=== PATIENT | female | born 1995 | race Caucasian/White ===

== ENCOUNTER 2018-11-23 07:44 | Emergency (ER) | payer OTHER, SELFPAY ==
[2018-11-23 07:44] VITALS: BP 153/79; PULSE 136; RESP 20; TEMP 36.6; O2SAT 100; BMI 21.9
--- NOTE | 2018-11-23 07:54 | DI.US.S_ITS ---
PROCEDURE: US PELVIC COMPLETE INDICATIONS: POSITIVE HOME TEST, VAGINAL BLEEDING AND CRAMPING. Additional history is provided of a negative hospital test. TECHNIQUE: Real-time scanning was performed of the pelvic organs, with image documentation. Additional endovaginal scanning was necessary due to incomplete visualization of the adnexal and endometrial structures by transabdominal scanning. COMPARISON: None. FINDINGS: Transabdominal scanning: Limited scanning through the kidneys shows no hydronephrosis. No pathologic free abdominal or pelvic fluid. Endovaginal scanning: Uterus: Uterus is normal in size at 7.1 x 4.6 x 3 cm. 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 The endometrium measures 8 mm in combined thickness. Ovaries: The right ovary measures 4.3 x 3.6 x 1.8 cm. The left ovary measures 3.2 x 1.9 x 1.4 cm. The ovaries have a normal sonographic appearance. Normal appearing arterial flow is confirmed to each ovary. There is a right paraovarian cyst seen that measures 1 cm. IMPRESSION: No acute abnormality is seen. 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 There is a 1 cm right adnexal paraovarian cyst seen, which is not regarded to be pathologic. Dictated by: Agustin Hinojosa M.D. on 11/23/2018 at 8:23 Approved by: Agustin Hinojosa M.D. on 11/23/2018 at 8:26
--- NOTE | 2018-11-23 08:04 | ED.PREGNANCY ---
HPI - General Chief complaint: OB/Uterine Contractions Stated complaint: WITH CRAMPS AND BLEEDING Time Seen by Provider: 11/23/18 07:47 Source: patient Mode of arrival: ambulatory Limitations: no limitations History of Present Illness HPI Narrative: 23-year-old female comes to the emergency department with complaint of and cramps and vaginal bleeding. Patient states that her last menstrual period was sometime in September she believes. She states she has had 3 positive home test. Today she woke up feeling crampy and having some vaginal bleeding. She states like she would normally have her menses. She denies any fevers or chills has mild headache, she denies any chest pain or shortness of breath. No nausea no vomiting. No issues with bowel movements. No frequency urgency or dysuria. No vaginal discharge otherwise. Patient has had 1 prior and had a . She has not had any other pregnancies. She denies any other medical issues. She had ear tubes as a child. She is not on any medications, she is not currently on any prenatals. She is not established with a care provider at this time, She does have an appointment in a couple weeks with choices Date of Last Menstrual Period: 09/25/18 Hx Last Menstrual Period: Patient unsure of dates, thinks September. 8w3d by suspected dates. Patient : Yes Expected Date of Delivery: 07/02/19 Related Data Allergies Allergy/AdvReac Type Severity Reaction Status Date / Time amoxicillin Allergy Unknown Verified 11/23/18 07:51 Penicillins AdvReac Vomiting Verified 11/23/18 07:51 Review of Systems Review of Systems ROS Unobtainable: All systems reviewed & are unremarkable except as noted in HPI and below Constitutional Denies chills, Denies fever(s) and Reports headache(s) ENT Ears, Nose, Mouth, and Throat: Reports headache(s) Cardiovascular Denies chest pain and Denies dyspnea Respiratory Denies dyspnea Gastrointestinal Gastrointestinal: Denies abdominal pain, Denies change in bowel habits, Denies diarrhea, Denies nausea and Denies vomiting Genitourinary Reports as per HPI, Reports abnormal menses, Reports abnormal vaginal bleeding, Denies hematuria, Denies urinary frequency, Denies dysuria, Denies flank pain, Denies urinary incontinence, Denies urinary urgency, Denies vaginal discharge and Denies vaginal odor Neurologic Reports headache(s) PMFSH - Past Medical History Medical history: Reports no medical history Surgical history: Reports other (ear tubes) 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 8w3d by suspected dates. Patient : Yes Expected Date of Delivery: 07/02/19 Exam Narrative Exam Narrative: GENERAL: Alert and oriented x three, well-nourished, well-appearing female in mild distress. Patient is quite tearful initially on exam. HEENT: Head normocephalic, atraumatic, EOMI, pupils reactive, face symmetric, moist mucous membranes NECK: Supple, full range of motion CARDIOVASCULAR: Regular rate and rhythm without murmurs, rubs or gallops. RESPIRATORY: Breath sounds equal bilaterally, no wheezes rales or rhonchi. ABDOMEN: Soft, nontender. Normoactive bowel sounds all 4 quadrants. No guarding or rebound, rigidity, no mass : No CVA tenderness. Female: no enlarged or tender uterus noted on exam. EXTREMITIES: Normal range of motion, no edema. Neurovascularly intact. Normal gait. NEUROLOGICAL: Cranial nerves II through XII grossly intact. Moving all extremities SKIN: Warm, dry, no petechiae, no rashes or lesions. Initial Vital Signs Initial Vital Signs: Vital Signs Temperature 97.8 F 11/23/18 07:44 Pulse Rate 136 H 11/23/18 07:44 Respiratory Rate 20 11/23/18 07:44 Blood Pressure 153/79 H 11/23/18 07:44 Pulse Oximetry 100 11/23/18 07:44 Course Orders Ordered: ED Orders 11/23/18 07:54 US pelvic complete Stat 11/23/18 08:02 Test Urine Stat Urinalysis and Microscopic Stat 11/23/18 08:27 ABO RH Type Stat Complete Blood Count AUTO DIFF Stat HCG Quantitative Stat Vital Signs - 8 hr 11/23/18 07:44 11/23/18 08:56 Temperature 97.8 F Pulse Rate 136 H 82 Respiratory Rate 20 12 Blood Pressure 153/79 H Blood Pressure [Left Arm] 119/76 Pulse Oximetry 100 MDM - OB/Uterine Contractions Lab Data Attestation: I reviewed the patient's lab results. Result diagrams: 11/23/18 08:27 Lab Results 11/23/18 11/23/18 11/23/18 Range/Units 08:02 08:02 08:27 WBC 7.1 (4.5-11.0) X10^3/uL RBC 3.66 L (4.0-5.2) X10^6/uL Hgb 11.7 L (12.0-16.0) g/dL Hct 33.7 L (36-46) % MCV 92.0 (80-100) fL MCH 31.9 (26-34) PG MCHC 34.7 (30-36) % RDW 12.1 (11.6-14.8) % Plt Count 249 (150-400) X10^3/uL Neut % (Auto) 71.4 (50-75) % Lymph % (Auto) 21.8 L (25-40) % [place] % (Auto) 5.8 (3-14) % Eos % (Auto) 0.7 L (2-4) % Baso % (Auto) 0.3 (0-2) % Neut # (Auto) 5100 (1636-4467) /uL Lymph # (Auto) 1500 (9821-5986) /uL [place] # (Auto) 400 (0-900) /uL Eos # (Auto) 0 (0-450) /uL Baso # (Auto) 0 (0-100) /uL HCG, Quant mIU/mL Urine Color Yellow Urine Appearance Clear Urine pH 6.5 (4.5-8.0) Ur Specific [place] 1.020 (1.000-1.035) Urine Protein Negative (Negative) Urine Glucose (UA) Negative (Negative) g/dL Urine Ketones Negative (NEGATIVE) Urine Occult Blood 3+ H (Negative) Urine Nitrate Negative (Negative) Urine Bilirubin Negative (NEGATIVE) Urine Urobilinogen 0.2 (0.2) E.U./dL Ur Leukocyte Esterase Trace H (NEGATIVE) Urine RBC 5-10/hpf H (0-5/HPF) Urine WBC 1-5/hpf (0-5/HPF) Ur Squamous Epith Cells 10-30 /hpf H (0-5/HPF) Urine Bacteria Moderate (10-30) H (None) Ur Culture Indicated? Cult not indicated Urine Test Negative (Negative) Blood Type 11/23/18 11/23/18 Range/Units 08:27 08:27 WBC (4.5-11.0) X10^3/uL RBC (4.0-5.2) X10^6/uL Hgb (12.0-16.0) g/dL Hct (36-46) % MCV (80-100) fL MCH (26-34) PG MCHC (30-36) % RDW (11.6-14.8) % Plt Count (150-400) X10^3/uL Neut % (Auto) (50-75) % Lymph % (Auto) (25-40) % [place] % (Auto) (3-14) % Eos % (Auto) (2-4) % Baso % (Auto) (0-2) % Neut # (Auto) (0272-0611) /uL Lymph # (Auto) (6842-1826) /uL [place] # (Auto) (0-900) /uL Eos # (Auto) (0-450) /uL Baso # (Auto) (0-100) /uL HCG, Quant 6.64 mIU/mL Urine Color Urine Appearance Urine pH (4.5-8.0) Ur Specific [place] (1.000-1.035) Urine Protein (Negative) Urine Glucose (UA) (Negative) g/dL Urine Ketones (NEGATIVE) Urine Occult Blood (Negative) Urine Nitrate (Negative) Urine Bilirubin (NEGATIVE) Urine Urobilinogen (0.2) E.U./dL Ur Leukocyte Esterase (NEGATIVE) Urine RBC (0-5/HPF) Urine WBC (0-5/HPF) Ur Squamous Epith Cells (0-5/HPF) Urine Bacteria (None) Ur Culture Indicated? Urine Test (Negative) Blood Type O Positive Imaging Data ob US: Radiologist's impression: [address] [address] Ultrasound Report Signed Patient: May Singletary MMR#: [id number] : 1995Acct:[id number] Age/Sex: te of Service: 11/23/18 Loc: ED Accession Number: [id number] Procedure: US pelvic complete Ordering Provider: Georgia Han D.O. PROCEDURE: US PELVIC COMPLETE INDICATIONS: POSITIVE HOME TEST, VAGINAL BLEEDING AND CRAMPING. Additional history is provided of a negative hospital test. TECHNIQUE: Real-time scanning was performed of the pelvic organs, with image documentation. Additional endovaginal scanning was necessary due to incomplete visualization of the adnexal and endometrial structures by transabdominal scanning. COMPARISON: None. FINDINGS: Transabdominal scanning: Limited scanning through the kidneys shows no hydronephrosis. No pathologic free abdominal or pelvic fluid. Endovaginal scanning: Uterus: Uterus is normal in size at 7.1 x 4.6 x 3 cm. 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 The endometrium measures 8 mm in combined thickness. Ovaries: The right ovary measures 4.3 x 3.6 x 1.8 cm. The left ovary measures 3.2 x 1.9 x 1.4 cm. The ovaries have a normal sonographic appearance. Normal appearing arterial flow is confirmed to each ovary. There is a right paraovarian cyst seen that measures 1 cm. IMPRESSION: No acute abnormality is seen. 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 There is a 1 cm right adnexal paraovarian cyst seen, which is not regarded to be pathologic. Dictated by: Agustin Hinojosa M.D. on 11/23/2018 at 8:23 Approved by: Agustin Hinojosa M.D. on 11/23/2018 at 8:26 MDM Narrative Medical decision making narrative: Patient's lab work shows a HCG of 6.6 and negative urine test. Ultrasound does not show any acute findings other than a paraovarian cyst which is not abnormal. Discussed with patient I suspect she had a complete miscarriage. Plan for follow-up outpatient with PCP. Discharge Plan Departure Patient Disposition: Home Clinical Impression: Miscarriage Discharge Date/Time: 11/23/18 09:55 Interventions: ED Discharge Assessment Last Done: 11/23/18 09:53 Instructions: DI for Miscarriage Activity Restrictions/Additional Instructions: Follow-up with your provider in the next week for recheck. You may take ibuprofen up to 800 mg every 8 hours and/or Tylenol up to a 1000 mg every 8 hours as needed for pain. You should expect vaginal bleeding for up to 7-14 days. Return to the emergency department for fevers greater than 100.4 F, rapidly increasing abdominal or pelvic pain, persistent vomiting, lightheadedness, passing out, shortness of breath, rapidly worsening vaginal bleeding with large clots that is continuing to increase or other new or concerning symptoms. Referrals: Quincy Graham MD [Primary Care Provider] -
--- NOTE | 2018-11-23 08:09 | ED_ITS ---
HPI - General Chief complaint: OB/Uterine Contractions Stated complaint: WITH CRAMPS AND BLEEDING Time Seen by Provider: 11/23/18 07:47 Source: patient Mode of arrival: ambulatory Limitations: no limitations History of Present Illness HPI Narrative: 23-year-old female comes to the emergency department with complaint of and cramps and vaginal bleeding. Patient states that her last menstrual period was sometime in September she believes. She states she has had 3 positive home test. Today she woke up feeling crampy and having some vaginal bleeding. She states like she would normally have her menses. She denies any fevers or chills has mild headache, she denies any chest pain or shortness of breath. No nausea no vomiting. No issues with bowel movements. No frequency urgency or dysuria. No vaginal discharge otherwise. Patient has had 1 prior and had a . She has not had any other pregnancies. She denies any other medical issues. She had ear tubes as a child. She is not on any medications, she is not currently on any prenatals. She is not established with a care provider at this time, She does have an appointment in a couple weeks with choices Date of Last Menstrual Period: 09/25/18 Hx Last Menstrual Period: Patient unsure of dates, thinks September. 8w3d by suspec ike dates. Patient : Yes Expected Date of Delivery: 07/02/19 Related Data Allergies Allergy/AdvReac Type Severity Reaction Status Date / Time amoxicillin Allergy Unknown Verified 11/23/18 07:51 Penicillins AdvReac Vomiting Verified 11/23/18 07:51 Review of Systems Review of Systems ROS Unobtainable: All systems reviewed & are unremarkable except as noted in HPI and below Constitutional Denies chills, Denies fever(s) and Reports headache(s) ENT Ears, Nose, Mouth, and Throat: Reports headache(s) Cardiovascular Denies chest pain and Denies dyspnea Respiratory Denies dyspnea Gastrointestinal Gastrointestinal: Denies abdominal pain, Denies change in bowel habits, Denies diarrhea, Denies nausea and Denies vomiting Genitourinary Reports as per HPI, Reports abnormal menses, Reports abnormal vaginal bleeding, Denies hematuria, Denies urinary frequency, Denies dysuria, Denies flank pain, Denies urinary incontinence, Denies urinary urgency, Denies vaginal discharge and Denies vaginal odor Neurologic Reports headache(s) PMFSH - Past Medical History Medical history: Reports no medical history Surgical history: Reports other (ear tubes) 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 8w3d by suspected dates. Patient : Yes Expected Date of Delivery: 07/02/19 Exam Narrative Exam Narrative: GENERAL: Alert and oriented x three, well-nourished, well- appearing female in mild distress. Patient is quite tearful initially on exam. HEENT: Head normocephalic, atraumatic, EOMI, pupils reactive, face symmetric, moist mucous membranes NECK: Supple, full range of motion CARDIOVASCULAR: Regular rate and rhythm without murmurs, rubs or gallops. RESPIRATORY: Breath sounds equal bilaterally, no wheezes rales or rhonchi. ABDOMEN: Soft, nontender. Normoactive bowel sounds all 4 quadrants. No guarding or rebound, rigidity, no mass : No CVA tenderness. Female: no enlarged or tender uterus noted on exam. EXTREMITIES: Normal range of motion, no edema. Neurovascularly intact. Normal gait. NEUROLOGICAL: Cranial nerves II through XII grossly intact. Moving all extremities SKIN: Warm, dry, no petechiae, no rashes or lesions. Initial Vital Signs Initial Vital Signs: Vital Signs Temperature 97.8 F 11/23/18 07:44 Pulse Rate 136 H 11/23/18 07:44 Respiratory Rate 20 11/23/18 07:44 Blood Pressure 153/79 H 11/23/18 07:44 Pulse Oximetry 100 11/23/18 07:44 Course Orders Ordered: ED Orders 11/23/18 07:54 US pelvic complete Stat 11/23/18 08:02 Test Urine Stat Urinalysis and Microscopic Stat 11/23/18 08:27 ABO RH Type Stat Complete Blood Count AUTO DIFF Stat HCG Quantitative Stat Vital Signs - 8 hr 11/23/18 07:44 11/23/18 08:56 Temperature 97.8 F Pulse Rate 136 H 82 Respiratory Rate 20 12 Blood Pressure 153/79 H Blood Pressure [Left Arm] 119/76 Pulse Oximetry 100 MDM - OB/Uterine Contractions Lab Data Attestation: I reviewed the patient's lab results. Result diagrams: 11/23/18 08:27 Lab Results 11/23/18 11/23/1811/23/19 Range/Units 08:02 08:02 08:27 WBC 7.1 (4.5-11.0) X10^3/uL RBC 3.66 L (4.0-5.2) X10^6/uL Hgb 11.7 L (12.0-16.0) g/dL Hct 33.7 L (36-46) % MCV 92.0 (80-100) fL MCH 31.9 (26-34) PG MCHC 34.7 (30-36) % RDW 12.1 (11.6-14.8) % Plt Count 249 (150-400) X10^3/uL Neut % (Auto) 71.4 (50-75) % Lymph % (Auto) 21.8 L (25-40) % [place] % (Auto) 5.8 (3-14) % Eos % (Auto) 0.7 L (2-4) % Baso % (Auto) 0.3 (0-2) % Neut # (Auto) 5100 (4712-1131) /uL Lymph # (Auto) 1500 (4086-4179) /uL [place] # (Auto) 400 (0-900) /uL Eos # (Auto) 0 (0-450) /uL Baso # (Auto) 0 (0-100) /uL HCG, Quant mIU/mL Urine Color Yellow Urine Appearance Clear Urine pH 6.5 (4.5-8.0) Ur Specific [place] 1.020 (1.000-1.035) Urine Protein Negative (Negative) Urine Glucose (UA) Negative (Negative) g/dL Urine Ketones Negative (NEGATIVE) Urine Occult Blood 3+ H (Negative) Urine Nitrate Negative (Negative) Urine Bilirubin Negative (NEGATIVE) Urine Urobilinogen 0.2 (0.2) E.U./dL Ur Leukocyte Esterase Trace H (NEGATIVE) Urine RBC 5-10/hpf H (0-5/HPF) Urine WBC 1-5/hpf (0-5/HPF) Ur Squamous Epith Cells 10-30 /hpf H (0-5/HPF) Urine Bacteria Moderate (10-30) H (None) Ur Culture Indicated? Cult not indicated Urine Test Negative (Negative) Blood Type 11/23/18 11/23/18 Range/Units 08:27 08:27 WBC (4.5-11.0) X10^3/uL RBC (4.0-5.2) X10^6/uL Hgb (12.0-16.0) g/dL Hct (36-46) % MCV (80-100) fL MCH (26-34) PG MCHC (30-36) % RDW (11.6-14.8) % Plt Count (150-400) X10^3/uL Neut % (Auto) (50-75) % Lymph % (Auto) (25-40) % [place] % (Auto) (3-14) % Eos % (Auto) (2-4) % Baso % (Auto) (0-2) % Neut # (Auto) (2823-5659) /uL Lymph # (Auto) (3190-5353) /uL [place] # (Auto) (0-900) /uL Eos # (Auto) (0-450) /uL Baso # (Auto) (0-100) /uL HCG, Quant 6.64 mIU/mL Urine Color Urine Appearance Urine pH (4.5-8.0) Ur Specific [place] (1.000-1.035) Urine Protein (Negative) Urine Glucose (UA) (Negative) g/dL Urine Ketones (NEGATIVE) Urine Occult Blood (Negative) Urine Nitrate (Negative) Urine Bilirubin (NEGATIVE) Urine Urobilinogen (0.2) E.U./dL Ur Leukocyte Esterase (NEGATIVE) Urine RBC (0-5/HPF) Urine WBC (0-5/HPF) Ur Squamous Epith Cells (0-5/HPF) Urine Bacteria (None) Ur Culture Indicated? Urine Test (Negative) Blood Type O Positive Imaging Data ob US: Radiologist's impression: [address] [address] Ultrasound Report Signed Patient: Mya Singletary MMR#: [id number] : 1995Acct:[id number] Age/Sex: FDate of Service: 11/23/18 Loc: ED Accession Number: [id number] Procedure: US pelvic complete Ordering Provider: Georgia Han D.O. PROCEDURE: US PELVIC COMPLETE INDICATIONS: POSITIVE HOME TEST, VAGINAL BLEEDING AND CRAMPING. Additional history is provided of a negative hospital test. TECHNIQUE: Real-time scanning was performed of the pelvic organs, with image documentation. Additional endovaginal scanning was necessary due to incomplete visualization of the adnexal and endometrial structures by transabdominal scanning. COMPARISON: None. FINDINGS: Transabdominal scanning: Limited scanning through the kidneys shows no hydronephrosis. No pathologic free abdominal or pelvic fluid. Endovaginal scanning: Uterus: Uterus is normal in size at 7.1 x 4.6 x 3 cm. 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 The endometrium measures 8 mm in combined thickness. Ovaries: The right ovary measures 4.3 x 3.6 x 1.8 cm. The left ovary measures 3.2 x 1.9 x 1.4 cm. The ovaries have a normal sonographic appearance. Normal appearing arterial flow is confirmed to each ovary. There is a right paraovarian cyst seen that measures 1 cm. IMPRESSION: No acute abnormality is seen. 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 There is a 1 cm right adnexal paraovarian cyst seen, which is not regarded to be pathologic. Dictated by: Agustin Hinojosa M.D. on 11/23/2018 at 8:23 Approved by: Agustin Hinojosa M.D. on 11/23/2018 at 8:26 MDM Narrative Medical decision making narrative: Patient's lab work shows a HCG of 6.6 and negative urine test. Ultrasound does not show any acute findings other than a paraovarian cyst which is not abnormal. Discussed with patient I suspect she had a complete miscarriage. Plan for follow-up outpatient with PCP. Discharge Plan Departure Patient Disposition: Home Clinical Impression: Miscarriage Discharge Date/Time: 11/23/18 09:55 Interventions: ED Discharge Assessment Last Done: 11/23/18 09:53 Instructions: DI for Miscarriage Activity Restrictions/Additional Instructions: Follow-up with your provider in the next week for recheck. You may take ibuprofen up to 800 mg every 8 hours and/or Tylenol up to a 1000 mg every 8 hours as needed for pain. You should expect vaginal bleeding for up to 7-14 days. Return to the emergency department for fevers greater than 100.4 F, rapidly increasing abdominal or pelvic pain, persistent vomiting, lightheadedness, passing out, shortness of breath, rapidly worsening vaginal bleeding with large clots that is continuing to increase or other new or concerning symptoms. Referrals: Quincy Graham MD [Primary Care Provider] -
[2018-11-23 08:21] LABS: Appearance Urine UA CLEAR; Bilirubin Urine UA NEGATIVE (NEGATIVE); Color Urine UA YELLOW; Glucose Urine UA NEGATIVE (Negative); Ketones Urine UA NEGATIVE (NEGATIVE); Leukocyte Esterase Urine UA TRACE (NEGATIVE); Nitrite Urine UA NEGATIVE (Negative); Occult Blood Urine UA 3+ (Negative); Protein Urine UA NEGATIVE (Negative); Urobilinogen Urine UA 0.2 E.U./dL (0.2); pH Urine UA 6.5 (4.5-8.0)
[2018-11-23 08:22] LABS: Pregnancy Test Urine Negative (Negative)
[2018-11-23 08:28] LABS: Bacteria Urine Moderate (10-30); Culture Indicated Urine Cult Not Indicated; RBC Urine 5-10/HPF (0-5/HPF); Squamous Epithelial Cell Urine 10-30 /HPF (0-5/HPF); WBC Urine 1-5/HPF (0-5/HPF)
[2018-11-23 08:36] LABS: Add Manual Diff / Slide Review NO; Basophils Absolute Auto 0 /uL (0-100); Basophils Percent Auto 0.3 % (0-2); Eosinophils Absolute Auto 0 /uL (0-450); Eosinophils Percent Auto 0.7 % (2-4); Hematocrit 33.7 % (36-46); Hemoglobin 11.7 g/dL (12.0-16.0); Lymphocytes Absolute Auto 1500 /uL (1100-4500); Lymphocytes Percent Auto 21.8 % (25-40); Mean Corpuscular HGB Conc 34.7 % (30-36); Mean Corpuscular Hemoglobin 31.9 PG (26-34); Monocytes Absolute Auto 400 /uL (0-900); Monocytes Percent Auto 5.8 % (3-14); Neutrophils Absolute Auto 5100 /uL (1500-7000); Neutrophils Percent Auto 71.4 % (50-75); Platelet Count 249 X10^3/uL (150-400); Red Blood Cell Count 3.66 X10^6/uL (4.0-5.2); Red Cell Distribution Width 12.1 % (11.6-14.8); White Blood Cell Count 7.1 X10^3/uL (4.5-11.0)
[2018-11-23 08:56] VITALS: BP 119/76; PULSE 82; RESP 12
[2018-11-23 09:03] LABS: HCG Quantitative /Beta subunit 6.64 mIU/mL
== END 2018-11-23 09:55 | disposition home or self-care (01) ==
PROVIDERS: Emergency Provider Emergency Medicine; PCP Family Medicine
DX: O03.9 Complete or unspecified spontaneous abortion without complication (principal)
CPT/HCPCS: 36415; 76830; 76856; 81001; 81025; 84702; 85025; 86900; 86901; 99283; 99284

== ENCOUNTER → 2018-12-06 11:58 | Outpatient (CLI) | payer OTHER, SELFPAY ==
--- NOTE | 2018-12-06 12:02 | DI.RAD.S_ITS ---
PROCEDURE: XR ANKLE RT MIN 3V INDICATIONS: Right ankle pain, lateral malleolus TECHNIQUE: 3 views of the ankle were acquired. COMPARISON: [facility], , ANKLE 3 VIEWS LEFT, 08/31/2011, 22:13. FINDINGS: Bones: No fractures or dislocations. Ankle mortise is normally aligned. No suspicious bony lesions. Soft tissues: No tibiotalar joint effusion. Achilles tendon appears normal. IMPRESSION: Intact right ankle. Dictated by: Linsey Agustin M.D. on 12/06/2018 at 12:41 Approved by: Linsey Agustin M.D. on 12/06/2018 at 12:41
== END ==
PROVIDERS: PCP Family Medicine; Visit Provider Physician Assistant
DX: M25.571 Pain in right ankle and joints of right foot (principal)
CPT/HCPCS: 73610

== ENCOUNTER → 2020-04-15 10:16 | Outpatient (CLI) | payer OTHER, SELFPAY ==
[2020-04-15 10:38] LABS: COVID19 -Nasal RAPID Negative (Negative)
== END ==
PROVIDERS: PCP Family Medicine; Visit Provider Physician Assistant
DX: Z11.59 Encounter for screening for other viral diseases (principal)
CPT/HCPCS: 87635

== ENCOUNTER → 2020-05-21 14:29 | Outpatient (CLI) | payer OTHER, SELFPAY ==
[2020-05-21 14:53] LABS: COVID19 -Nasal RAPID Negative (Negative)
== END ==
PROVIDERS: PCP Family Medicine; Visit Provider Physician Assistant
DX: Z20.822 Contact with and (suspected) exposure to COVID-19 (principal); R50.9 Fever, unspecified; R51.9 Headache, unspecified
CPT/HCPCS: 87635

== ENCOUNTER 2020-08-24 14:23 | Emergency (ER) | payer OTHER, SELFPAY ==
[2020-08-24 14:40] VITALS: BP 105/55; PULSE 74; RESP 20; TEMP 36.9; O2SAT 98
--- NOTE | 2020-08-24 15:43 | ED.FEMALEGU ---
HPI - Female Genitourinary General Chief complaint: Urogenital-Female Stated complaint: cyst by vagina Time Seen by Provider: 08/24/20 15:42 Source: patient Mode of arrival: Ambulatory History of Present Illness HPI Narrative: 25-year-old otherwise healthy woman with and irritation in the vaginal area for a couple of weeks. She had done her own research and concluded it was a Bartholin's duct cyst and as it was not hurting or causing problems she has seemed would heal by itself. This morning she awoke with severe swelling and pain. She describes no fevers, no significant vaginal discharge. No recent sexual partners no chance of . Related Data Home Medications Medication Instructions Recorded Confirmed No Known Home Medications 12/06/18 05/21/20 Allergies Allergy/AdvReac Type Severity Reaction Status Date / Time amoxicillin Allergy Unknown Verified 05/21/20 14:20 Penicillins AdvReac Vomiting Verified 05/21/20 14:20 Review of Systems Review of Systems Narrative: Pertinent positive and negative findings as per HPI Remainder of review of systems is otherwise unremarkable for Constitutional: Fevers, chills, weakness ENT: No sore throat, neck pain, ear pain CV: Chest pain, palpitations, Respiratory: Cough, wheeze, dyspnea GI: Nausea, vomiting, diarrhea, : Dysuria, hematuria, Patient History Medical History No active medical problems Substance Use Type: marijuana Exam Narrative Exam Narrative: General: Healthy appearing, in no acute distress. Able to give a complete and coherent history. Well-nourished well-developed HEENT: Moist mucous membranes, normal sclera with reactive pupils, Respiratory: Lungs are clear to auscultation, no wheezing no rales no rhonchi. Full and symmetrical air movement Cardiac: Regular rate and rhythm no murmurs no bruits Abdomen: Soft, nontender, good bowel tones, no flank pain Skin: Warm and dry, no rashes Neurologic: Grossly neurologically intact with no obvious asymmetries or abnormalities Extremities: No trauma, well perfused Psych: Cooperative, appropriate insight and affect Genitals: Large cyst in the left labia majora consistent with a Bartholin duct cyst. No abnormalities over the inner portion of the labia. No rashes. Initial Vital Signs Initial Vital Signs: Vital Signs Temperature 98.4 F 08/24/20 14:40 Pulse Rate 74 04/13/21 14:40 Respiratory Rate 20 08/24/20 14:40 Blood Pressure 105/55 L 08/24/20 14:40 Pulse Oximetry 98 08/24/20 14:40 Procedures [facility] [place] Procedure Name of Procedure: Bartholin duct cyst, word catheter placement Side (if applicable): left Location: labia Technique/Description of procedure performed: sterile technique anesthetized with 2% lido 8cc #11 blade used to open the cyst 35cc of old blood and viscous material freely returned. Does not look purulent word catheter placed into cyst without difficulty. 4cc saline into the balloon minimal bleeding, est 5cc no complications Patient tolerated procedure: Well Course Vital Signs Vital signs: Vital Signs - 8 hr 08/24/20 14:40 Temperature 98.4 F Pulse Rate 74 Respiratory Rate 20 Blood Pressure 105/55 L Pulse Oximetry 98 MDM - Female Genitourinary Medical Records Attestation: I reviewed the patient's medical records. [facility] Narrative Medical decision making narrative: 24-year-old woman with a : Duct cyst at the has not been bothering her until the last 24 hours. His gotten significantly larger and more painful. It is not red or hot and she has not had any infectious symptoms. Word catheter is placed without difficulty into the cystic space with 4 cc of saline into the catheter and catheter secure Patient will follow-up with OBGYN are, asked her to walk over to the department and schedule the appointment today. Discharge Plan Departure Patient Disposition: Home Clinical Impression: Cyst of Bartholin's gland duct Instructions: DI for Bartholin Gland Cyst Activity Restrictions/Additional Instructions: Thank you for coming in today You did have a Bartholin gland cyst. It was easy to drain in you had around 40 cc of material that did not appear to be infected. A Word Catheter was placed without any difficulty. You can talk the end of the catheter toward your vagina so that is easier to walk and be comfortable. You will likely have a bit of the discharge that we noticed with the initial incision and a bit of blood as well. Panty liners will likely be helpful. Please walk over to [facility] an asked to schedule appointment with Dr. Capri Chatterjee, the OBGYN on-call. The appointment needs to be an emergency room follow-up for word catheter placement If you have fevers, more drainage or if begins to smell, increasing pain or redness you do need to return to the emergency department Prescriptions: No Action No Known Home Medications RF: 0 Referrals: Quincy Graham MD [Primary Care Provider] - Capri Chatterjee MD [Physician] -
== END 2020-08-24 16:13 | disposition home or self-care (01) ==
PROVIDERS: Emergency Provider Emergency Medicine; PCP Family Medicine
DX: N75.0 Cyst of Bartholin's gland (principal)
CPT/HCPCS: 56420; 99281; 99283

== ENCOUNTER → 2020-09-02 16:42 | Outpatient (CLI) | payer OTHER, SELFPAY ==
[2020-09-02] MEDS: COVID-19 VACC #1, MRNA(MOD) 100 MCG/0.5 ML VIAL IM (17:03)
== END ==
PROVIDERS: PCP Family Medicine; Visit Provider Internal Medicine
DX: Z23 Encounter for immunization (principal)
CPT/HCPCS: 0011A; 91301

== ENCOUNTER → 2020-09-20 14:41 | Outpatient (CLI) | payer OTHER, SELFPAY | PROVIDERS: Visit Provider Obstetrics & Gynecology | DX: N75.0 Cyst of Bartholin's gland (principal) | CPT/HCPCS: 87070; 87205 ==

== ENCOUNTER → 2020-09-30 10:48 | Outpatient (CLI) | payer OTHER, SELFPAY ==
[2020-09-30] MEDS: COVID-19 VACC #2, MRNA(MOD) 100 MCG/0.5 ML VIAL IM (10:55)
== END ==
PROVIDERS: Visit Provider Internal Medicine
DX: Z23 Encounter for immunization (principal)
CPT/HCPCS: 0012A; 91301

== ENCOUNTER 2020-10-09 17:21 | Emergency (ER) | payer OTHER, SELFPAY ==
[2020-10-09 18:08] VITALS: BP 120/69; PULSE 93; RESP 18; TEMP 36.8; O2SAT 99; BMI 24.7
[2020-10-09] MEDS: IBUPROFEN 400 MG TABLET 800 MG PO (20:20)
--- NOTE | 2020-10-09 20:39 | ED_ITS ---
HPI - Skin/Abscess/Foreign Bdy General Chief complaint: Skin/Abscess/Foreign Body Stated complaint: Cyst reoccurence Time Seen by Provider: 10/09/20 20:27 Source: patient Mode of arrival: Ambulatory Limitations: no limitations History of Present Illness HPI narrative: Patient is a 25-year-old female who presents with history of left Bartholin's cyst. She states it has recurred it came on suddenly last night she is in severe pain and tearful. It has been drained twice the 1st was in the emergency department on August 24, she then follow up with her wind tunnel mechanic who rehab drained it on September 20 and started her on antibiotics. She denies fever or chills. She has significant pain. MD complaint: abscess/boil Onset (ago): day(s) (1) Severity: severe Related Data Previous Rx's Medication Instructions Recorded sulfamethoxazole 800 1 tab PO BID #14 tab 09/20/20 mg-trimethoprim 160 mg tablet sulfamethoxazole-trimethoprim 1 tab PO BID 10 Days #20 tab 10/09/20 [Bactrim DS] Allergies Allergy/AdvReac Type Severity Reaction Status Date / Time amoxicillin Allergy Unknown Verified 10/09/20 18:08 Penicillins AdvReac Vomiting Verified 10/09/20 18:08 Review of Systems Review of Systems Narrative: GENERAL: Denies chills,fever HEENT: Denies throat pain RESPIRATORY: Denies dyspnea, cough, wheezing CARDIOVASCULAR: Denies chest pain, palpitations GASTROINTESTINAL: Denies nausea, vomiting MUSCULOSKELETAL: Denies extremity pain, injury SKIN: See HPI NEUROLOGIC: Denies weakness, dizziness, headache, numbness 8 point review of systems is negative except for those stated above and HPI Patient History Medical History (Updated 10/09/20 @ 21:52 by Jenny Antoine DO) Bartholin's gland abscess No active medical problems Social History Smoking Status: Current every day smoker Smoking Status: Current every day smoker tobacco type: vaping alcohol intake frequency: a few times a month Substance Use Type: does not use Exam Initial Vital Signs Initial Vital Signs: Vital Signs Temperature 98.2 F 10/09/20 18:08 Pulse Rate 93 H 10/09/20 18:08 Respiratory Rate 18 10/09/20 18:08 Blood Pressure 120/69 10/09/20 18:08 Pulse Oximetry 99 10/09/20 18:08 GENERAL: Tearful young female CARDIOVASCULAR: peripheral pulses in tact, cap refill <2 sec RESPIRATORY: No respiratory distress, speaks in full sentences without difficulty 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 Neurovascularly intact NEUROLOGICAL: Cranial nerves II through XII grossly intact. Normal gait and speech. SKIN: Warm, dry, no petechiae, no rashes or lesions. Procedures Abscess I/D I&D #1: Site: bartholin's gland Side (if applicable): left Local Anesthetic: lidocaine 1% Amount of anesthesia used (mL): 4 Technique: incised with #11 blade Irrigation: No Packing used?: none and Word catheter (patient refused) Complications: pain and bleeding Course Orders Ordered: ED Orders 10/09/20 21:45 Wound Culture and Gram Stain Stat Discontinued Medications Ibuprofen (Ibuprofen 400 Mg Tablet) 800 mg PO NOW ONE Stop: 10/09/20 20:16 Last Admin: 10/09/20 20:20 Dose: 800 mg Documented by: TIANNA Lidocaine HCl (Lidocaine 1% (Pf)) 6 ml SUBCUT NOW ONE Stop: 10/09/20 21:06 Last Admin: 10/09/20 21:35 Dose: 6 ml Documented by: TIANNA Vital Signs Vital signs: Vital Signs - 8 hr 10/09/20 20:59 10/09/20 21:00 10/09/20 21:30 Pulse Rate 83 80 68 Blood Pressure 119/70 Pulse Oximetry 97 98 100 10/09/20 21:37 10/09/20 21:40 Pulse Rate 59 L Blood Pressure 119/66 Pulse Oximetry 100 MDM - Skin/Abscess/Foreign Bdy MDM Narrative Medical decision making narrative: Patient is requesting not to have word catheter placed she said it caused issues last time. 2nd recurrence at this month previously placed on Bactrim will start her on Bactrim again and have her follow up with wind tunnel mechanic. Culture is pending. There was foul smell all loss of drainage pain instantly improved. Discharge Plan Departure Patient Disposition: Home Clinical Impression: Bartholin's gland abscess Instructions: DI for Bartholin Gland Cyst Activity Restrictions/Additional Instructions: *You have been diagnosed with Bartholin cyst *What to do: Please follow-up with wind tunnel mechanic may require further intervention such as surgery. *Continue to take medications as directed Bactrim 1 tablet twice a day for 10 days--> [facility] in [place] *Follow up with your wind tunnel mechanic in 2-3 days *Return to ER if you should have fever chills increasing swelling, pain or any new, worsening or concerning symptoms Prescriptions: New sulfamethoxazole-trimethoprim [Bactrim DS] 800-160 mg tablet 1 tab PO BID 10 Days Qty: 20 RF: 0 No Action sulfamethoxazole-trimethoprim [Bactrim DS] 800-160 mg tablet 1 tab PO BID Qty: 14 RF: 0 Referrals: Tess Zacarias MD [Primary Care Provider] -
[2020-10-09 20:59] VITALS: BP 119/70; PULSE 83; O2SAT 97
[2020-10-09 21:00] VITALS: PULSE 80; O2SAT 98
[2020-10-09 21:30] VITALS: PULSE 68; O2SAT 100
[2020-10-09] MEDS: LIDOCAINE 1% (PF) 6 ML SUBCUT (21:35)
[2020-10-09 21:37] VITALS: PULSE 59; O2SAT 100
[2020-10-09 21:40] VITALS: BP 119/66
== END 2020-10-09 22:00 | disposition home or self-care (01) ==
PROVIDERS: Emergency Provider Emergency Medicine; PCP Obstetrics & Gynecology
DX: N75.0 Cyst of Bartholin's gland (principal)
CPT/HCPCS: 10060; 87070; 87075; 87077; 87205; 99283

== ENCOUNTER → 2020-11-01 15:20 | Outpatient (CLI) | payer OTHER, SELFPAY ==
[2020-11-01 16:04] LABS: COVID19 -Nasal RAPID Negative (Negative)
== END ==
PROVIDERS: Visit Provider Obstetrics & Gynecology
DX: Z01.812 Encounter for preprocedural laboratory examination (principal); Z20.822 Contact with and (suspected) exposure to COVID-19
CPT/HCPCS: 87635

== ENCOUNTER 2020-11-01 15:40 | Day surgery (SDC) | payer OTHER, SELFPAY ==
[2020-11-01 13:29] VITALS: BMI 25.4
--- NOTE | 2020-11-01 15:47 | PM.HP.1 ---
History of Present Illness History of Present Illness Date Patient Seen: 11/01/20 Time Patient Seen: 15:47 Chief complaint: SDC Narrative: Patient is a 25-year-old 0 with a left Bartholin's gland abscess Patient reports feeling some pain on Sunday afternoon. This got worse yesterday and excruciating this morning. She is not able to sit. She works from home and has been having trouble doing her work because she can not get comfortable. Patient History Medical History Bartholin's gland abscess No active medical problems Family & Social History Tobacco & Substance use: Smoking Status Current every day smoker alcohol intake current alcohol intake frequency a few times a month Substance Use Type does not use Meds Home Medications and Allergies Allergies Allergy/AdvReac Type Severity Reaction Status Date / Time amoxicillin Allergy Unknown Verified 10/28/20 08:33 Penicillins AdvReac Vomiting Verified 10/28/20 08:33 Exam Vital Signs (past 8 hours): Generally: A well-developed, well-nourished female in moderate distress secondary to pain Lungs: Clear to auscultation bilaterally Cardiovascular: Regular rate and rhythm Abdomen: Soft and flat. External genitalia: On the left side there is a small opening into the Bartholin's gland with pus coming out. Assessment & Plan Assessment & Plan narrative: Assessment: 25-year-old 0 with a left Bartholin's gland abscess Plan: Incision and drainage with marsupialization of the left Bartholin's gland abscess The risks, benefits, and alternatives to the procedure were explained to the patient. The risks including bleeding and infection. She understands these risks and agrees to proceed. A full par Q was held and consent form was signed. COVID-19 COVID-19 status: Result pending Time Spent With Patient Time with patient: 25 - 35 minutes
--- NOTE | 2020-11-01 15:49 | PM.PREOP ---
Pre-operative Note COVID-19 COVID-19 status: Result pending Result date/Date tested (Pos, Neg/Pending): 11/01/20 Interval Note History & Physical reviewed/Exam performed by Physician: Yes Changes to H&P: No H&P completed within 30 days and has changed as indicated here:: 11/01/20
[2020-11-01] MEDS: LACTATED RINGERS 1,000 ML 42 ML IV (16:14)
[2020-11-01 16:16] VITALS: BMI 25.4
[2020-11-01] MEDS: CEFAZOLIN 1 GM VIAL 2 GM IV (16:50)
--- NOTE | 2020-11-01 16:57 | SUR.OPER ---
Lithotomy on padded OR bed, head on pillow, arms secured on padded arm boards at <90 degrees abduction. Legs secured in padded yellow fins stirrups.
[2020-11-01] MEDS: BUPIVACAINE 0.5% (PF) VIAL 30 ML INJ (17:02)
[2020-11-01 17:17] VITALS: BP 112/67; PULSE 100; RESP 14; TEMP 37.6; O2SAT 100
--- NOTE | 2020-11-01 17:20 | PM.GYNOP.1 ---
Operative Date/Time/Diagnoses Date of procedure: 11/01/20 Time of procedure: 17:20 Pre-op diagnosis: Left Bartholin's gland abscess Post-op diagnosis: same Procedure & Clinicians Procedure: Procedures Operation Date: 11/01/20 15:45 Actual Procedures Side Surgeon manoj Nunez with Marsupialization of Bartholin's Gland Cyst Laura Mckee MD Indications: Left Bartholin's gland abscess Surgeon: Laura Mckee Anesthesia Type: General (LMA) and Local Operative Notes Findings: 4 cm x 3 cm left Bartholin's gland abscess Closure Type: non-primary Specimen(s): other (Cultures of abscess) Estimated blood loss (mL): 10 Blood products transfused: none Procedure in detail: After informed consent was obtained, the patient was taken to the operating room where she was placed in the dorsal supine position. After adequate LMA general anesthesia was achieved, she was placed in the dorsal lithotomy position, and prepped and draped in the usual sterile fashion. A time-out was performed. On the left side there was a small opening into the Bartholin's gland with pus coming from the opening. This opening was extended with a 10. Blade to 1.5 cm. There was a large gush of pus. Cultures were obtained. The gland was irrigated with 500 cc of sterile saline. The gland was marsupialized by using 2 0 Vicryl sutures through the mucosa and out through the skin approximately 5. There was a small area of bleeding at the base of the Bartholin's gland and this was cauterized with the Bovie for hemostasis. 7 cc of 0.5% Marcaine were injected around the incision. Hemostasis was achieved. Sponge, lap, and instrument counts were correct x2. The patient tolerated the procedure well, and was taken to PACU in stable condition. Complications: none Post-operative Condition: stable Disposition: PACU Plan for aftercare: Home after recovery
[2020-11-01 17:22] VITALS: BP 120/72; PULSE 95; RESP 20; O2SAT 100
[2020-11-01 17:27] VITALS: BP 128/74; PULSE 92; RESP 16; O2SAT 100
[2020-11-01 17:55] VITALS: BP 123/64; PULSE 90; RESP 17; TEMP 37; O2SAT 100
== END 2020-11-01 18:00 | disposition home or self-care (01) ==
PROVIDERS: Referring Provider Obstetrics & Gynecology; Visit Provider Obstetrics & Gynecology
PROC: (CPT 56440; principal; 2020-11-01 15:45)
DX: N75.1 Abscess of Bartholin's gland (principal); Z20.822 Contact with and (suspected) exposure to COVID-19; F17.210 Nicotine dependence, cigarettes, uncomplicated
CPT/HCPCS: 56440; 87070; 87075; 87205; 87635; J0690; J1100; J2250; J2405; J2704; J3010

== ENCOUNTER 2021-02-16 17:55 | Emergency (ER) | payer OTHER, SELFPAY ==
[2021-02-16 18:02] VITALS: BP 134/61; PULSE 85; RESP 16; TEMP 36.9; O2SAT 98; BMI 25.4
--- NOTE | 2021-02-16 18:52 | ED_ITS ---
HPI - Female Genitourinary <ANTONIO Flowers - Last Filed: 02/16/21 20:07> General Chief complaint: Urogenital-Female Stated complaint: bartholin cyst, really full, lot of pain Time Seen by Provider: 02/16/21 18:31 Source: patient Mode of arrival: Ambulatory History of Present Illness HPI Narrative: 25-year-old female with history of monthly recurring bartholin cysts requiring drainage presents to the ED today for 5 days of swelling to her left labia consistent with previous bartholin gland cysts. She states this was marsupialized 2 months ago, and she has had surgery for this which evidently was not successful as she has had recurrence. She denies any fever, redness or swelling extending beyond the gland, drainage, or other. She states that she has been doing Sitz baths twice or 3 times a day for the last week. She has not taken anything for this pain, she reports that she drove here today. She reports that warm compresses and Sitz baths have been unsuccessful a draining this at home. Related Data Previous Rx's Medication Instructions Recorded oxycodone-acetaminophen 5 mg-325 1 tab PO Q8H PRN #10 tab 02/16/21 mg tablet (Percocet) Allergies Allergy/AdvReac Type Severity Reaction Status Date / Time amoxicillin Allergy Unknown Verified 01/04/21 17:02 Penicillins AdvReac Vomiting Verified 01/04/21 17:02 Review of Systems <ANTONIO Flowers - Last Filed: 02/16/21 20:07> Review of Systems Narrative: Pertinent positive and negative findings as per HPI Remainder of review of systems is otherwise unremarkable for Constitutional:? Without Fevers, chills, weakness ENT:? No sore throat, neck pain, ear pain CV:? Denies Chest pain, palpitations, Respiratory:? Denies Cough, wheezes, dyspnea GI:? Denies Nausea, vomiting, diarrhea, :? Denies Dysuria, hematuria, or drainage from labial cyst Patient History <ANTONIO Flowers - Last Filed: 02/16/21 20:07> Medical History Bartholin's gland abscess No active medical problems Surgical History History of incision and drainage (11/01/20) tobacco type: vaping alcohol intake frequency: a few times a week Substance Use Type: does not use Exam <ANTONIO Flowers - Last Filed: 02/16/21 20:07> Narrative Exam Narrative: General: Healthy appearing, in no acute distress.? Able to give a complete and coherent history.? Well-nourished well-developed HEENT:? Moist mucous membranes, normal sclera with reactive pupils, Respiratory:? Lungs are clear to auscultation, no wheezing no rales no rhonchi.? Full and symmetrical air movement Cardiac:? Regular rate and rhythm no murmurs no bruits Abdomen:? Soft, nontender, good bowel tones, no flank pain Skin:? Warm and dry, no rashes Neurologic:? Grossly neurologically intact with no obvious asymmetries or abnormalities Extremities:? No trauma, well perfused Psych:? Cooperative, appropriate insight and affect Genitals:? Large cyst on the left labia majora consistent with a Bartholin duct cyst.? No abnormalities over the inner portion of the labia.? No rashes. Initial Vital Signs Initial Vital Signs: Vital Signs Temperature 98.4 F 02/16/21 18:02 Pulse Rate 85 02/16/21 18:02 Respiratory Rate 16 02/16/21 18:02 Blood Pressure 134/61 02/16/21 18:02 Pulse Oximetry 98 02/16/21 18:02 <Jenny Antoine DO - Last Filed: 02/25/21 21:49> Initial Vital Signs Initial Vital Signs: Vital Signs Temperature 98.4 F 02/16/21 18:02 Pulse Rate 85 02/16/21 18:02 Respiratory Rate 16 02/16/21 18:02 Blood Pressure 134/61 02/16/21 18:02 Pulse Oximetry 98 02/16/21 18:02 Procedures <ANTONIO Flowers - Last Filed: 02/16/21 20:07> Abscess I/D I&D #1: Time of procedure: 19:15 Site: other Side (if applicable): left (Labia) Sedation/analgesia: other (Tylenol and ibuprofen) Local Anesthetic: lidocaine 1% and with bicarb Amount of anesthesia used (mL): 3 Technique: incised with #11 blade (Site cleansed with Betadine, anesthetized with buffered lidocaine, stab incision old blood and viscous mater ial freely returned. Does not look purulent or infected. No surrounding erythema or edema, no complications) Amount of fluid expressed (mL): 40 Packing used?: none (Patient refused Word catheter, and packing, she states that she will do warm compresses manually express the drainage. Patient tolerated well) Course <ANTONIO Flowers - Last Filed: 02/16/21 20:07> Orders Ordered: Discontinued Medications Acetaminophen (Acetaminophen 325 Mg Tablet) 650 mg PO Q4HR PRN PRN Reason: Fever/Mild Pain (1-3) Last Admin: 02/16/21 19:07 Dose: 650 mg Documented by: JANKI Ibuprofen (Ibuprofen 400 Mg Tablet) 600 mg PO NOW ONE Stop: 02/16/21 18:57 Last Admin: 02/16/21 19:07 Dose: 600 mg Documented by: JANKI Lidocaine/Sodium Bicarbonate (Lido 1%/Sod Bicarb 8.4% (10ml) 10 Ml Syringe) 10 ml INJ NOW ONE Stop: 02/16/21 18:52 Last Admin: 02/16/21 18:54 Dose: 10 ml Documented by: ROSIBEL Vital Signs Vital signs: Vital Signs - 8 hr 02/16/21 18:02 Temperature 98.4 F Pulse Rate 85 Respiratory Rate 16 Blood Pressure 134/61 Pulse Oximetry 98 <Jenny Antoine DO - Last Filed: 02/25/21 21:49> Orders Ordered: Discontinued Medications Acetaminophen (Acetaminophen 325 Mg Tablet) 650 mg PO Q4HR PRN PRN Reason: Fever/Mild Pain (1-3) Last Admin: 02/16/21 19:07 Dose: 650 mg Documented by: JANKI Ibuprofen (Ibuprofen 400 Mg Tablet) 600 mg PO NOW ONE Stop: 02/16/21 18:57 Last Admin: 02/16/21 19:07 Dose: 600 mg Documented by: MICHAELWANSO Lidocaine/Sodium Bicarbonate (Lido 1%/Sod Bicarb 8.4% (10ml) 10 Ml Syringe) 10 ml INJ NOW ONE Stop: 02/16/21 18:52 Last Admin: 02/16/21 18:54 Dose: 10 ml Documented by: KBRYERS Vital Signs Vital signs: Vital Signs - 8 hr 02/16/21 18:02 Temperature 98.4 F Pulse Rate 85 Respiratory Rate 16 Blood Pressure 134/61 Pulse Oximetry 98 [facility] - Female Genitourinary <Belem NunezANTONIO - Last Filed: 02/16/21 20:07> [facility] Narrative Medical decision making narrative: 25-year-old female with history of Bartholin gland cyst with recurrence, states it has not been bothersome her until the last 24 hours.? Now it has gotten significantly larger and more painful. History of marsupilization?2 months ago for recurrent Bartholin gland cyst, presenting for recurrence symptoms. Is not erythematous or warm and she has not had any infectious symptoms. She has been afebrile, is nontoxic appearing, no signs of cellulitis. She has had several drainage is and Word catheters prior and now declines word catheter or packing. Several on her last visit with Dr. quiñones it is noted that she appeared to have a wound seroma informed and they were watching and waiting to see if it filled. The patient is interested in a bar some line gland excision, a specialized procedure that is not available here in [facility]. Apparently a referral was placed to [facility], the patient reports reported that she was in heard anything about that referral. She plans to follow-up with Dr. quiñones in the next couple of days. Patient is appropriate and amenable to discharge home. Vital signs are stable on repeat examination is unremarkable. Patient has been informed of results. Patient has been given strict return to ER precautions for any new or worsening symptoms. Patient understands to follow up closely with outpatient providers as instructed. Patient understands plan and agrees to discharge home. All questions and concerns answered at this time. Discharge Plan Departure Patient Disposition: Home Clinical Impression: Bartholin's gland abscess Activity Restrictions/Additional Instructions: *You have been diagnosed with a Bartholin gland abscess on your left labia. It does not appear to be infected time so I have not ordered antibiotics for you. If you develop any signs or symptoms of infection including worsening redness, swelling, tracking up the leg please return to the emergency department or follow-up with Dr. Quiñones immediately. *What to do: *Please continue to take your regular medications as directed. [ x] New medication prescriptions sent to your pharmacy: [ ] [ ] New medication written as a paper prescription [ ] No new medications given *Please follow up with your primary care provider in 2-3 days, call for an appointment. Let them know you were seen in the Emergency Department and that we ask that you be seen in follow up. We will electronically transmit a record of today's note if your PCP is in our system *If you do not have a primary care provider please contact the [facility] Resource line at [phone]. They will ask some questions about your medical history and help get you set up with a doctor in the community. *Return to Emergency Department if you should have any new, worsening or concerning symptoms, such as [fever greater than 101F, chills, worsening pain, persistent vomiting or other bothersome symptoms] Prescriptions: New oxycodone-acetaminophen [Percocet] 5-325 mg tablet 1 tab PO Q8H PRN (Reason: pain) Qty: 10 RF: 0 Referrals: Tess Quiñones MD [Physician] - As soon as possible Laura Mckee MD [Physician] - 3-5 days Miscellaneous,MD Mami [Primary Care Provider] - As soon as possible ([facility] [address] [place] [address] [place] [id number] ) <Jenny Antoine, - Last Filed: 02/25/21 21:49> Cosign ED Attending Homerature Attestation: I was immediately available in the departm ent for consultation. Documentation has been reviewed. I agree with assessment and plan.
[2021-02-16] MEDS: LIDO 1%/SOD BICARB 8.4% (10ML) 10 ML SYRINGE INJ (18:54)
[2021-02-16] MEDS: IBUPROFEN 400 MG TABLET 600 MG PO (19:07)
[2021-02-16] MEDS: ACETAMINOPHEN 325 MG TABLET 650 MG PO (19:07)
[2021-02-16 19:45] VITALS: BP 114/76; PULSE 79; RESP 16; O2SAT 100
== END 2021-02-16 19:45 | disposition home or self-care (01) ==
PROVIDERS: Emergency Provider Nurse Practitioner Critical Care Medicine
DX: N75.1 Abscess of Bartholin's gland (principal)
CPT/HCPCS: 10060; 99283

== ENCOUNTER → 2021-04-28 12:50 | Outpatient (CLI) | payer OTHER, SELFPAY | PROVIDERS: Visit Provider Obstetrics & Gynecology | DX: N75.1 Abscess of Bartholin's gland (principal) | CPT/HCPCS: 87070; 87075; 87205 ==